=== PATIENT | male | born 1960 | race Caucasian/White ===

== ENCOUNTER 2022-09-12 14:33 | Inpatient (IN) | payer OTHER ==
[~2022-09-12] VITALS: Ht 175.3 cm; Wt 63.5 kg
[2022-09-12 14:50] VITALS: BP 112/59
--- NOTE | 2022-09-12 14:55 | NUR ---
bibs for upper abd pain 12/03 with n/v x 2 weeks. no active vomit. denies chest pain, dizziness. fever, chills, sob. aao x4. resp even and nonlabored. ambulatory
[2022-09-12] MEDS ORDERED: NACL 0.9% 1,000 ML IV SCH ×2 (15:00→16:10)
[2022-09-12] MEDS ORDERED: ONDANSETRON 4 MG/2 ML VIAL IVP ONE (15:00)
--- NOTE | 2022-09-12 15:42 | NUR ---
labs and urine given to lab
[2022-09-12 15:59] LABS: BASOPHILS % (AUTO) 0.2 % (0.0-2.0); EOSINOPHILS % (AUTO) 0.1 % (0.0-4.0); HEMATOCRIT 26.1 % (36-52); HEMOGLOBIN 8.5 g/dL (12.0-18.0); LYMPHOCYTES # (AUTO) 1.6 K/uL (2.0-11.5); LYMPHOCYTES % (AUTO) 8.7 % (20.5-51.1); MEAN CORPUSCULAR HEMOGLOBIN 27 pg (27-31); MEAN CORPUSCULAR HGB CONC 33 g/dL (33-37); MEAN CORPUSCULAR VOLUME 82.5 fL (80-94); MONOCYTES # (AUTO) 1.1 K/uL (0.8-1.0); MONOCYTES % (AUTO) 5.9 % (1.7-9.3); NEUTROPHILS # (AUTO) 15.4 K/uL (1.8-7.7); NEUTROPHILS % (AUTO) 85.1 % (42.2-75.2); PLATELET COUNT (AUTO) 847 K/uL (140-450); RED BLOOD CELL COUNT(AUTO) 3.16 MIL/uL (4.20-6.10); RED CELL DISTRIBUTION WIDTH 16.6 % (11.6-13.7); WHITE BLOOD COUNT (AUTO) 18.2 K/uL (4.8-10.8)
[2022-09-12] MEDS ORDERED: metroNIDAZOLE 500 MG/NS PREMIX 100 ML IV ONE (16:10)
[2022-09-12] MEDS ORDERED: cefTRIAXone 1,000 MG VIAL ONE (16:44)
--- NOTE | 2022-09-12 16:46 | NUR ---
DR. MASSEY AT BEDSIDE.
--- NOTE | 2022-09-12 17:01 | NUR ---
covid swab sent to lab. pt given oral contrast for ct
[2022-09-12 17:25] LABS: ANION GAP 13.6 (8-16); CARBON DIOXIDE 26.4 mmol/L (21-32)
[2022-09-12 17:44] LABS: PROTHROMBIN TIME 11.6 secs (10.8-13.4)
[2022-09-12 17:59] LABS: ALBUMIN 2.6 g/dL (3.4-5.0); CREATININE 1.3 mg/dL (0.6-1.3); TOTAL BILIRUBIN 0.3 mg/dL (0.0-1.0)
[2022-09-12] MEDS ORDERED: MORPHINE SULFATE 4 MG/ML SYR IVP PRN (18:00)
[2022-09-12] MEDS ORDERED: ONDANSETRON 4 MG/2 ML VIAL IVP PRN (18:00)
[2022-09-12] MEDS ORDERED: HYDROcodone/APAP 5/325 MG 1 TAB TAB PO PRN (18:00)
[2022-09-12] MEDS ORDERED: ACETAMINOPHEN 325 MG TAB PO PRN (18:00)
[2022-09-12 18:02] LABS: BILIRUBIN,URINE NEGATIVE (NEGATIVE); BLOOD, URINE NEGATIVE (NEGATIVE); LEUKOCYTE ESTERASE ,URINE NEGATIVE (NEGATIVE); NITRITE, URINE NEGATIVE (NEGATIVE); UGLUCOSE NEGATIVE (NEGATIVE)
[2022-09-12 18:08] LABS: APPEARANCE,URINE CLEAR (CLEAR)
[2022-09-12 18:09] LABS: COLOR,URINE YELLOW (YELLOW)
--- NOTE | 2022-09-12 18:36 | NUR ---
pt to ct. stable
--- NOTE | 2022-09-12 19:11 | NUR ---
CONTAC INFO SERAFIN () [id number]
--- NOTE | 2022-09-12 19:15 | NUR ---
REPORT GIVEN TO KVNG RIVER
[2022-09-12] MEDS: NACL 0.9% 1,000 ML IV SCH (19:29)
--- NOTE | 2022-09-12 19:53 | NUR ---
Patient resting in bed, A/Ox4, chest rise and fall symmetrical, no s/s of distress.
--- NOTE | 2022-09-12 21:30 | NUR ---
Patient resting in bed, A/Ox4, chest rise and fall symmetrical, no c/o pain or s/s of distress.
[2022-09-12] MEDS: metroNIDAZOLE 500 MG/NS PREMIX 100 ML IV SCH (21:53)
--- NOTE | 2022-09-12 23:20 | NUR ---
Patient resting in bed, A/Ox4, chest rise and fall symmetrical, no c/o pain or s/s of distress.
--- NOTE | 2022-09-13 01:35 | NUR ---
Patient resting in bed, A/Ox4, chest rise and fall symmetrical, no c/o pain or s/s of distress.
--- NOTE | 2022-09-13 04:06 | NUR ---
Patient resting in bed, A/Ox4, chest rise and fall symmetrical, no c/o pain or s/s of distress.
[2022-09-13] MEDS: metroNIDAZOLE 500 MG/NS PREMIX 100 ML IV SCH ×3 (05:14→22:10)
--- NOTE | 2022-09-13 05:55 | NUR ---
Patient resting in bed, A/Ox4, chest rise and fall symmetrical, no c/o pain or s/s of distress.
[2022-09-13 07:07] LABS: BASOPHILS % (AUTO) 0.3 % (0.0-2.0); EOSINOPHILS % (AUTO) 0.1 % (0.0-4.0); HEMATOCRIT 22.8 % (36-52); HEMOGLOBIN 7.4 g/dL (12.0-18.0); LYMPHOCYTES # (AUTO) 1.7 K/uL (2.0-11.5); MEAN CORPUSCULAR HEMOGLOBIN 27 pg (27-31); MEAN CORPUSCULAR HGB CONC 33 g/dL (33-37); MEAN CORPUSCULAR VOLUME 81.8 fL (80-94); NEUTROPHILS # (AUTO) 11.5 K/uL (1.8-7.7); NEUTROPHILS % (AUTO) 80.6 % (42.2-75.2); PLATELET COUNT (AUTO) 593 K/uL (140-450); RED BLOOD CELL COUNT(AUTO) 2.78 MIL/uL (4.20-6.10); RED CELL DISTRIBUTION WIDTH 16.7 % (11.6-13.7); WHITE BLOOD COUNT (AUTO) 14.2 K/uL (4.8-10.8)
[2022-09-13] MEDS: NACL 0.9% 1,000 ML IV SCH ×2 (07:16→18:36)
[2022-09-13 07:32] LABS: ANION GAP 11.5 (8-16); CREATININE 1.1 mg/dL (0.6-1.3); MAGNESIUM 2.3 mg/dL (1.8-2.4); POTASSIUM 4.5 mmol/L (3.5-5.1); TOTAL BILIRUBIN 0.3 mg/dL (0.0-1.0)
--- NOTE | 2022-09-13 07:59 | NUR ---
transferred patient to room 112A. Gave report to ALETA Petty. [facility] No pain noted at this time. No distress noted. NSR on CM, o2 sat 99% at RA
--- NOTE | 2022-09-13 10:42 | NUR ---
09/13/2022 0800: RECEIVED PT FROM [facility]. PT AMBULATED TO BED WITH A STEADY GAIT. NO SOB, NO C/O PAIN. NO ACUTE DISTRESS AT THIS TIME. [id number].
[2022-09-13 12:00] VITALS: BP 118/75
[2022-09-13 16:00] VITALS: BP 129/77
--- NOTE | 2022-09-13 19:30 | NUR ---
RECEIVED REPORT FROM DAY SHIFT NURSE YADIRA FOR CONTINUITY OF CARE. PATIENT IS A&O X4. PATIENT IS ON ROOM AIR, BREATHING IS NORMAL WITH SYMMETRICAL RISE AND FALL OF CHEST. PATIENT HAD A 20G LAC, RUNNING NS AT 80; BUT IV CAME OUT BEFORE THE START OF SHIFT. PATIENT IS CURRENTLY NOT RUNNING ANY FLUIDS. PATIENT IS SLEEPING, LYING SEMI-FOWLERS ON HIS LEFT SIDE. BED IS IN LOWEST POSITION, WHEELS LOCKED, CALL LIGHT IN PLACE. WILL CONTINUE TO OBSERVE PATIENT.
[2022-09-13 20:00] VITALS: BP 132/71
--- NOTE | 2022-09-13 20:02 | NUR ---
09/13/20221999: REPORTED OFF TO KVNG RIVER. PT RESTING IN BED EYES CLOSED. NO SOB, GUARDING OR GRIMACING. NO ACUTE DISTRESS NOTED AT THIS TIME. [id number].
--- NOTE | 2022-09-13 22:15 | NUR ---
NEW IV WAS PLACED INTO PATIENT. IV IS A 20G RAC. IV IS PATENT. WILL CONTINUE TO OBSERVE PATIENT.
[2022-09-14] VITALS: BP 123/68
[2022-09-14 04:00] VITALS: BP 115/54
[2022-09-14] MEDS: metroNIDAZOLE 500 MG/NS PREMIX 100 ML IV SCH ×3 (04:35→21:56)
--- NOTE | 2022-09-14 04:50 | NUR ---
PATIENT HAS BEEN SLEEPING THROUGHOUT THE NIGHT, WAKING ONCE TO EAT. PATIENT HAD TWO CUPS OF JELLO. IV IS PATENT. BREATHING IS NORMAL WITH SYMMETRICAL RISE AND FALL OF CHEST. WILL CONTINUE TO OBSERVE PATIENT.
--- NOTE | 2022-09-14 07:26 | NUR ---
ENDORSED TO DAY SHIFT NURSE WESTON FOR CONTINUITY OF CARE. PATIENT IS STABLE.
[2022-09-14 07:28] LABS: ALBUMIN 2.2 g/dL (3.4-5.0); ANION GAP 9.7 (8-16); CARBON DIOXIDE 25.3 mmol/L (21-32); MAGNESIUM 2.1 mg/dL (1.8-2.4); TOTAL BILIRUBIN 0.4 mg/dL (0.0-1.0)
[2022-09-14 07:55] LABS: BASOPHILS % (AUTO) 0.3 % (0.0-2.0); EOSINOPHILS % (AUTO) 0.3 % (0.0-4.0); HEMATOCRIT 20.2 % (36-52); LYMPHOCYTES # (AUTO) 1.7 K/uL (2.0-11.5); MEAN CORPUSCULAR HEMOGLOBIN 26 pg (27-31); MEAN CORPUSCULAR HGB CONC 32 g/dL (33-37); MEAN CORPUSCULAR VOLUME 81.2 fL (80-94); MONOCYTES # (AUTO) 1.1 K/uL (0.8-1.0); MONOCYTES % (AUTO) 8.4 % (1.7-9.3); NEUTROPHILS # (AUTO) 10.5 K/uL (1.8-7.7); PLATELET COUNT (AUTO) 581 K/uL (140-450); RED BLOOD CELL COUNT(AUTO) 2.48 MIL/uL (4.20-6.10); RED CELL DISTRIBUTION WIDTH 16.9 % (11.6-13.7); WHITE BLOOD COUNT (AUTO) 13.4 K/uL (4.8-10.8)
[2022-09-14 08:00] VITALS: BP 115/63
--- NOTE | 2022-09-14 08:33 | NUR ---
PATIENT HAS BEEN SCREENED AND CATEGORIZED LOW NUTRITION RISK. PATIENT WILL BE SEEN WITHIN 7 DAYS OF ADMISSION. 09/12/22-09/19/[address]
[2022-09-14 08:36] LABS: HEMOGLOBIN 6.5 g/dL (12.0-18.0)
--- NOTE | 2022-09-14 09:14 | NUR ---
Notified Dr Murray about Hemoglobin at 6.5 and was given an order to infuse 1 unit of blood.
[2022-09-14] MEDS ORDERED: PANTOPRAZOLE 40 MG INJ VIAL IVP SCH (10:03)
[2022-09-14] MEDS: NACL 0.9% 1,000 ML IV SCH ×2 (10:55→20:00)
[2022-09-14] MEDS: PANTOPRAZOLE 80 MG in NACL 0.9% 100 ML IVP SCH ×2 (11:16→20:57)
[2022-09-14 12:00] VITALS: BP 133/77
[2022-09-14 16:00] VITALS: BP 144/73
--- NOTE | 2022-09-14 19:30 | NUR ---
RECEIVED REPORT FROM DAY SHIFT NURSE ENRICO FOR CONTINUITY OF CARE. PATIENT IS A&O X4. PATIENT IS ON ROOM AIR, BREATHING IS NORMAL WITH SYMMETRICAL RISE AND FALL OF CHEST. PATIENT HAS A 20G KEVEN, RUNNING PROTONIX IV AT 10. PATIENT IS AWAKE, LYING SEMI-FOWLERS ON HIS RIGHT SIDE, VISITING WITH FAMILY. BED IS IN LOWEST POSITION, WHEELS LOCKED, CALL LIGHT IN PLACE. WILL CONTINUE TO OBSERVE PATIENT.
[2022-09-14] MEDS ORDERED: cefTRIAXone 1,000 MG VIAL ONE (19:55)
[2022-09-14 20:00] VITALS: BP 103/60
[2022-09-15] VITALS: BP 101/58
[2022-09-15 04:00] VITALS: BP 102/71
[2022-09-15] MEDS: metroNIDAZOLE 500 MG/NS PREMIX 100 ML IV SCH (04:12)
--- NOTE | 2022-09-15 04:41 | NUR ---
PATIENT HAS SLEPT THROUGHOUT THE NIGHT. PATIENT HAS BEEN NPO SINCE MIDNIGHT. NOTIFIED RADIOLOGY ABOUT ORDERED UPPER GI X-RAY WITHOUT KUB TO RULE OUT PERFORATED DU PRIOR TO EGD. JACK SETTER SAID THEY ARE GOING TO INFORM DAY SHIFT TECH TO NOTIFY RADIOLOGIST TO SEE IF HE CAN COME IN TODAY TO DO UPPER GI X-RAY. DOCTOR NOTATED THAT ENDOSCOPY WILL NOT BE DONE UNTIL 48-72 HRS. OF IV PROTONIX IS GIVEN AND UPPER GI IS DONE. WILL INFORM DAY SHIFT NURSE.
[2022-09-15] MEDS: PANTOPRAZOLE 80 MG in NACL 0.9% 100 ML IVP SCH (06:30)
--- NOTE | 2022-09-15 07:15 | NUR ---
receive the patient from the the integrated campaign manager rn in rm 112A aox4 ambulatory . admitting diagnosis of perforated ulcer . will continue to monitor
[2022-09-15 07:20] LABS: BASOPHILS # (AUTO) 0.1 K/uL (0.00-0.22); BASOPHILS % (AUTO) 0.7 % (0.0-2.0); EOSINOPHILS # (AUTO) 0.1 K/uL (0-0.4); EOSINOPHILS % (AUTO) 0.5 % (0.0-4.0); HEMATOCRIT 23.4 % (36-52); HEMOGLOBIN 7.7 g/dL (12.0-18.0); LYMPHOCYTES # (AUTO) 1.7 K/uL (2.0-11.5); LYMPHOCYTES % (AUTO) 14.1 % (20.5-51.1); MEAN CORPUSCULAR HEMOGLOBIN 27 pg (27-31); MEAN CORPUSCULAR HGB CONC 33 g/dL (33-37); MEAN CORPUSCULAR VOLUME 81.9 fL (80-94); MONOCYTES # (AUTO) 0.8 K/uL (0.8-1.0); MONOCYTES % (AUTO) 7.1 % (1.7-9.3); NEUTROPHILS # (AUTO) 9.2 K/uL (1.8-7.7); NEUTROPHILS % (AUTO) 77.6 % (42.2-75.2); PLATELET COUNT (AUTO) 583 K/uL (140-450); RED BLOOD CELL COUNT(AUTO) 2.86 MIL/uL (4.20-6.10); RED CELL DISTRIBUTION WIDTH 16.6 % (11.6-13.7); WHITE BLOOD COUNT (AUTO) 11.8 K/uL (4.8-10.8)
[2022-09-15 07:40] LABS: ALBUMIN 2.2 g/dL (3.4-5.0); ANION GAP 10.2 (8-16); CARBON DIOXIDE 25.9 mmol/L (21-32); CREATININE 1.1 mg/dL (0.6-1.3); MAGNESIUM 2.2 mg/dL (1.8-2.4); POTASSIUM 4.1 mmol/L (3.5-5.1); TOTAL BILIRUBIN 0.3 mg/dL (0.0-1.0)
--- NOTE | 2022-09-15 07:57 | NUR ---
ENDORSED TO DAY SHIFT NURSE IZAIAH FOR CONTINUITY OF CARE. PATIENT IS STABLE.
--- NOTE | 2022-09-15 10:00 | NUR ---
patient sing consent for EGD
--- NOTE | 2022-09-15 10:15 | NUR ---
patient was package pick up for kidney ureter bladder . tolerated the procedure . result was duodenal ulcer . h pylori
[2022-09-15] MEDS ORDERED: fentaNYL citrate 0.05 MG/ML VIAL ONE (10:48)
[2022-09-15] MEDS ORDERED: MIDAZOLAM 5 MG/5 ML VIAL ONE (10:49)
[2022-09-15] MEDS ORDERED: fentaNYL citrate 0.05 MG/ML VIAL IVP ONE (11:20)
[2022-09-15] MEDS ORDERED: MIDAZOLAM 5 MG/5 ML VIAL IV ONE (11:20)
--- NOTE | 2022-09-15 11:30 | NUR ---
patient leave against medical advice . pros and cons have been explained to the patient . will inform the md
--- NOTE | 2022-09-15 11:45 | NUR ---
md Murray has been made notified
== END 2022-09-15 12:25 | disposition left against medical advice (07) | DRG 720 ==
LOC: MED 14:33 → MTU 18:04
PROVIDERS: ADMIT Student in an Organized Health Care Education/Training Program; ATTEND Student in an Organized Health Care Education/Training Program
PROC: 30233N1 Transfusion of Nonautologous Red Blood Cells into Peripheral Vein, Percutaneous Approach (ICD-10-PCS; principal; 2022-09-14)
PROC: 0DB98ZX Excision of Duodenum, Via Natural or Artificial Opening Endoscopic, Diagnostic (ICD-10-PCS; 2022-09-15)
PROC: 0DB68ZX Excision of Stomach, Via Natural or Artificial Opening Endoscopic, Diagnostic (ICD-10-PCS; 2022-09-15)
DX: A41.9 Sepsis, unspecified organism (principal); R64 Cachexia; E87.1 Hypo-osmolality and hyponatremia; K22.10 Ulcer of esophagus without bleeding; I10 Essential (primary) hypertension; E78.5 Hyperlipidemia, unspecified; K80.20 Calculus of gallbladder without cholecystitis without obstruction; F17.200 Nicotine dependence, unspecified, uncomplicated; N20.0 Calculus of kidney; Z20.822 Contact with and (suspected) exposure to COVID-19; Z68.20 Body mass index [BMI] 20.0-20.9, adult; K26.7 Chronic duodenal ulcer without hemorrhage or perforation; K25.9 Gastric ulcer, unspecified as acute or chronic, without hemorrhage or perforation; D64.9 Anemia, unspecified
CPT/HCPCS: 36415; 71045; 74018; 80053; 81003; 83605; 83690; 83735; 83880; 84484; 85025; 85610; 85730; 86677; 86886; 86900; 86901; 86920; 87040; 87086; 88305; 88312; 88342; 93005; 96361; 96365; 96368; 96375; 99291; C9113; J0696; J2250; J2270; J2405; J3010; J3490; J7030; J7060; P9016; Q0092; Q9967